=== PATIENT | male | born 1995 | race Caucasian/White ===

== ENCOUNTER 2019-02-06 01:42 | Emergency (ER) | payer OTHER ==
--- NOTE | 2019-02-06 02:06 | ED ---
Head Injury HPI - General Stated complaint: ETOH Time Seen by Provider: 02/06/19 01:49 Source: family Mode of arrival: EMS Limitations: altered mental status - History of Present Illness Initial comments: This patient is 23-year-old man brought by pulse to be evaluated after he had struck his head against car window. The patient had reportedly been drinking and then was upset. He struck himself with this to the face and then he struck his head against the one of a car. The patient then was becoming more intoxicated so EMS was phoned and brought him here. The patient appears very intoxicated and not able to give any history. MD Complaint: head injury -: minutes(s) Mechanism of Injury: other Location: frontal Loss of Consciousness: no Previous Trauma to this Area: No Place: outdoors Provoking factors: other (Alcohol) Other Injuries: none - Related Data Allergies/Adverse reactions: Allergies Allergy/AdvReac Type Severity Reaction Status Date / Time Fish Containing Products AdvReac Unknown Verified 02/06/19 02:08 [Fish] Review of Systems ROS Statement: Those systems with pertinent positive or pertinent negative responses have been documented in the HPI. ROS Other: All systems not noted in ROS Statement are negative. Limitations: ROS unobtainable due to patients medical condition General Exam General appearance: appears intoxicated, obtunded Head exam: Present: normocephalic, other (Contusion right frontal scalp/forehea d. No palpable deformity.) Eye exam: Present: normal appearance, PERRL, EOMI, nystagmus. Absent: scleral icterus, conjunctival injection ENT exam: Present: normal oropharynx Neck exam: Present: normal inspection, other (No palpable deformity or step- off.). Absent: tenderness Respiratory exam: Present: rhonchi. Absent: respiratory distress, wheezes, rales, stridor, chest wall tenderness, accessory muscle use, decreased breath sounds Cardiovascular Exam: Present: regular rate, normal rhythm, normal heart sounds. Absent: systolic murmur, diastolic murmur, rubs, gallop GI/Abdominal exam: Present: soft. Absent: distended, tenderness, guarding, rebound, rigid, mass Extremities exam: Present: normal inspection, normal capillary refill. Absent: pedal edema, calf tenderness Back exam: Present: normal inspection. Absent: CVA tenderness (R), CVA tenderness (L) Neurological exam: Present: altered, CN II-XII intact (Cranial nerve reflexes intact. Gag reflex is strong.), reflexes normal, other (Patient not able to cooperate with neurologic exam as he appears to be very intoxicated.) Skin exam: Present: warm, dry, intact, normal color. Absent: rash Course Vital Signs 02/06/19 02/06/19 02:02 03:55 Temperature 98.5 F Pulse Rate 82 64 Respiratory 17 18 Rate Blood Pressure 155/96 111/67 O2 Sat by Pulse 96 98 Oximetry Medical Decision Making - Lab Data Result diagrams: 02/06/19 01:58 02/06/19 01:58 Lab Results 02/06/19 02/06/19 Range/Units 01:58 01:58 WBC 11.2 H (3.8-10.6) k/uL RBC 4.87 (4.30-5.90) m/uL Hgb 15.4 (13.0-17.5) gm/dL Hct 42.8 (39.0-53.0) % MCV 87.9 (80.0-100.0) fL MCH 31.7 (25.0-35.0) pg MCHC 36.1 (31.0-37.0) g/dL RDW 12.3 (11.5-15.5) % Plt Count 204 (150-450) k/uL Neutrophils % 86 % Lymphocytes % 10 % Monocytes % 3 % Eosinophils % 0 % Basophils % 0 % Neutrophils # 9.6 H (1.3-7.7) k/uL Lymphocytes # 1.2 (1.0-4.8) k/uL Monocytes # 0.3 (0-1.0) k/uL Eosinophils # 0.0 (0-0.7) k/uL Basophils # 0.0 (0-0.2) k/uL Sodium 141 (137-145) mmol/L Potassium 4.1 (3.5-5.1) mmol/L Chloride 107 (98-107) mmol/L Carbon Dioxide 20 L (22-30) mmol/L Anion Gap 14 mmol/L BUN 12 (9-20) mg/dL Creatinine 0.87 (0.66-1.25) mg/dL Est GFR (CKD-EPI)AfAm >90 (>60 ml/min/1.73 sqM) Est GFR (CKD-EPI)NonAf >90 (>60 ml/min/1.73 sqM) Glucose 108 H (74-99) mg/dL Calcium 9.5 (8.4-10.2) mg/dL Serum Alcohol 155 mg/dL Disposition Clinical Impression: Alcoholic intoxication, Head injury Disposition: HOME SELF-CARE Condition: Good Instructions (If sedation given, give patient instructions): Alcohol Intoxication (ED), Head Injury (ED) Is patient prescribed a controlled substance at d/c from ED?: No Referrals: None,Stated [Primary Care Provider] - 1-2 days
--- NOTE | 2019-02-06 02:44 | CT ---
EXAMINATION TYPE: CT brain neha doyle con DATE OF EXAM: 02/06/2019 COMPARISON: None HISTORY: AMS CT DLP: 2003.60 mGycm Automated exposure control for dose reduction was used. TECHNIQUE: CT scan of the head and cervical spine are performed without contrast. FINDINGS: Ventricles have normal size. There is no mass effect nor midline shift. There is no sign of intracranial hemorrhage. The calvarium is intact. There is right frontal scalp hematoma. Skull bas e is intact. There is mild mucosal thickening right maxillary sinus. Orbital margins appear intact. Cervical vertebra have normal alignment. Disc spaces are normal. Posterior elements are intact. Facet joints appear normal. Skull base is intact. IMPRESSION: Negative CT scan of the brain. Right frontal moderate scalp hematoma. Negative CT scan of the cervical spine.
[2019-02-06 02:56] LABS: Basophils % (A) 0 %; Eosinophils % (A) 0 %; HCT 42.8 % (39.0-53.0); HGB 15.4 gm/dL (13.0-17.5); Lymphocytes # (A) 1.2 k/uL (1.0-4.8); Lymphocytes % (A) 10 %; MCH 31.7 pg (25.0-35.0); MCHC 36.1 g/dL (31.0-37.0); MCV 87.9 fL (80.0-100.0); Monocytes # (A) 0.3 k/uL (0-1.0); Monocytes % (A) 3 %; Neutrophils # (A) 9.6 k/uL (1.3-7.7); Neutrophils % (A) 86 %; Platelet Count 204 k/uL (150-450); RBC 4.87 m/uL (4.30-5.90); RDW 12.3 % (11.5-15.5); WBC 11.2 k/uL (3.8-10.6)
[2019-02-06 02:58] LABS: African American GFR (CKD) >90 (>60 ml/min/1.73 sqM); Anion Gap 14 mmol/L; Blood Urea Nitrogen 12 mg/dL (9-20); Calcium 9.5 mg/dL (8.4-10.2); Carbon Dioxide 20 mmol/L (22-30); Chloride 107 mmol/L (98-107); Glucose 108 mg/dL (74-99); Non-African American GFR(CKD) >90 (>60 ml/min/1.73 sqM); Potassium 4.1 mmol/L (3.5-5.1); Sodium 141 mmol/L (137-145)
[2019-02-06 03:16] LABS: Alcohol 155 mg/dL
[2019-02-06 03:56] VITALS: PULSE 64
[2019-02-06 05:31] VITALS: BP 133/84; RESP 17; TEMP 97.9
[2019-02-06] MEDS ORDERED: PROMETHAZINE INJ 25 MG/ML 1 ML VIAL IM STA (05:49)
== END 2019-02-06 05:58 | disposition home or self-care (01) ==
LOC: EC 01:42
DX: F10.129 Alcohol abuse with intoxication, unspecified (principal); S00.03XA Contusion of scalp, initial encounter; S00.83XA Contusion of other part of head, initial encounter; Z91.013 Allergy to seafood; Y90.6 Blood alcohol level of 120-199 mg/100 ml; X83.8XXA Intentional self-harm by other specified means, initial encounter; Y93.89 Activity, other specified; Y92.89 Other specified places as the place of occurrence of the external cause
CPT/HCPCS: 36415; 70450; 72125; 80048; 80320; 85025; 96372; 99284

== ENCOUNTER 2022-08-16 17:23 | Emergency (ER) | payer OTHER ==
[2022-08-16 17:55] VITALS: RESP 16
[2022-08-16] MEDS ORDERED: IBUPROFEN 800 MG TAB PO STA (18:16)
[2022-08-16 18:44] LABS: Basophils % (A) 1 %; Eosinophils # (A) 0.2 k/uL (0-0.7); Eosinophils % (A) 3 %; HCT 44.5 % (39.0-53.0); HGB 15.8 gm/dL (13.0-17.5); Lymphocytes # (A) 2.2 k/uL (1.0-4.8); Lymphocytes % (A) 23 %; MCH 31.8 pg (25.0-35.0); MCHC 35.5 g/dL (31.0-37.0); MCV 89.5 fL (80.0-100.0); Mean Platelet Volume 8.8; Monocytes # (A) 0.6 k/uL (0-1.0); Monocytes % (A) 7 %; Neutrophils # (A) 6.1 k/uL (1.3-7.7); Neutrophils % (A) 65 %; Platelet Count 277 k/uL (150-450); RBC 4.97 m/uL (4.30-5.90); RDW 12.5 % (11.5-15.5); WBC 9.2 k/uL (3.8-10.6)
[2022-08-16 19:06] LABS: ALT 51 U/L (4-49); AST 39 U/L (17-59); African American GFR (CKD) >90 (>60 ml/min/1.73 sqM); Albumin 4.6 g/dL (3.5-5.0); Alkaline Phosphatase 98 U/L (38-126); Anion Gap 11 mmol/L; Blood Urea Nitrogen 16 mg/dL (9-20); Calcium 9.7 mg/dL (8.4-10.2); Carbon Dioxide 28 mmol/L (22-30); Chloride 101 mmol/L (98-107); Glucose 90 mg/dL (74-99); Non-African American GFR(CKD) >90 (>60 ml/min/1.73 sqM); Potassium 4.1 mmol/L (3.5-5.1); Sodium 140 mmol/L (137-145); Total Bilirubin 0.4 mg/dL (0.2-1.3); Total Protein 7.9 g/dL (6.3-8.2); Uric Acid 6.3 mg/dL (3.5-8.5)
--- NOTE | 2022-08-16 19:19 | XR ---
EXAMINATION TYPE: XR foot complete LT DATE OF EXAM: 08/16/2022 6:57 PM INDICATION: Patient age:Male; 26 years old; Reason for study: L big toe; COMPARISON: None TECHNIQUE: The left foot was examined in the AP, oblique, and lateral projections. FINDINGS: Hallux valgus, mild soft tissue swelling around the medial aspect of the first digit metatarsophalang eal joint. No evidence of any acute osseous pathology. No evidence of soft tissue swelling. Joints a re preserved. IMPRESSION: 1. No evidence of acute fracture. 2. Hallux valgus with mild soft tissue swelling around the first digit metatarsal phalangeal joint.
--- NOTE | 2022-08-16 19:44 | ED ---
General Adult HPI - General Chief complaint: Extremity Injury, Lower Stated complaint: lt foot swelling Time Seen by Provider: 08/16/22 17:58 Source: patient, RN notes reviewed Mode of arrival: ambulatory Limitations: no limitations - History of Present Illness Initial comments: 26-year-old male with no significant past medical history presents to the emergency department with a chief complaint of left foot pain. Patient reports worsening pain and swelling to the left great toe. He reports that his symptoms started approximately 2 days ago. He denies any injury or trauma. He reports that it is warm to the touch. He has not taken anything for his symptoms. He denies any fevers, chills, numbness, tingling, weakness in the extremity. - Related Data Home Medications Medication Instructions Recorded Confirmed Aspirin EC [Ecotrin Low Dose] 81 mg PO DAILY 07/24/22 08/16/22 busPIRone HCL [Buspar] 7.5 mg PO BID@0900,1700 08/16/22 08/16/22 Previous Rx's Medication Instructions Recorded amLODIPine [Norvasc] 5 mg PO DAILY #30 tab 07/25/22 Indomethacin [Indocin] 50 mg PO TID 10 Days #30 capsule 08/16/22 Allergies Allergy/AdvReac Type Severity Reaction Status Date / Time Fish Containing Products Allergy Anaphylaxis Verified 08/16/22 18:18 [Fish] fish oil Allergy Anaphylaxis Verified 08/16/22 18:18 metoprolol [From Toprol XL] AdvReac tongue was Verified 08/16/22 18:18 numb/finger tingling Review of Systems ROS Statement: Those systems with pertinent positive or pertinent negative responses have been documented in the HPI. ROS Other: All systems not noted in ROS Statement are negative. Past Medical History Past Medical History: No Reported History History of Any Multi-Drug Resistant Organisms: None Reported Past Surgical History: No Surgical Hx Reported Past Psychological History: No Psychological Hx Reported Smoking Status: Current some day smoker Past Alcohol Use History: Occasional Past Drug Use History: Marijuana General Exam - General Exam Comments Initial Comments: General: Alert, in no acute distress Head: atraumatic normocephalic. Eyes PERRL, EOMI intact, mucous membranes moist Respiratory: Lungs clear to auscultation bilaterally Cardiovascular: Heart rate regular rate and rhythm Abdominal: Soft without guarding or rebound Extremities: Normal inspection with full range of motion and normal capillary refill, bilateral bunion left foot with podagra full range of motion is tender to palpation. 2+ DP/PT pulses Neuroogic: alert and oriented 3, CN II-XII intact, able to ambulate with steady gait Skin: warm dry and intact with normal color Limitations: no limitations Course Vital Signs 08/16/22 08/16/22 08/16/22 17:52 19:43 19:51 Temperature 97.9 F 98.6 F Pulse Rate 75 76 76 Respiratory 16 16 16 Rate Blood Pressure 153/92 149/96 149/96 O2 Sat by Pulse 100 99 99 Oximetry Medical Decision Making - Medical Decision Making Was pt. sent in by a medical professional or institution (, [facility], [employer], urgent care, hospital, or prison...) When possible be specific @ -[No] Did you speak to anyone other than the patient for history (EMS, parent, family, police, friend...)? What history was obtained from this source @ -[No] Did you review nursing and triage notes (agree or disagree)? Why? @ -[I reviewed and agree with nursing and triage notes] Were old charts reviewed (outside hosp., previous admission, EMS record, old EKG, old radiological studies, urgent care reports/EKG's, prison records)? Report findings @ -[No old charts were reviewed] Differential Diagnosis (chest pain, altered mental status, abdominal pain women, abdominal pain men, vaginal bleeding, weakness, fever, dyspnea, syncope, headache, dizziness, GI bleed, back pain, seizure, CVA, palpatations, mental health, musculoskeletal)? @ -[not applicable] EKG interpreted by me (3pts min.). @ -[As above] X-rays interpreted by me (1pt min.). @ -X-rays negative for any evidence of acute fracture dislocation or osteomyelitis CT interpreted by me (1pt min.). @ -[None done] U/S interpreted by me (1pt. min.). @ -[None done] What testing was considered but not performed or refused? (CT, X-rays, U/S, labs)? Why? @ -[None] What meds were considered but not given or refused? Why? @ -[None] Did you discuss the management of the patient with other professionals (professionals i.e. , PA, CUSTOMER SERVICE AD[employer]OC[employer], lab, RT, psych nurse, social service worker, electric car operator, teacher, mobile patrol officer, correctional casework specialist)? Give summary @ -[No] Was smoking cessation discussed for >3mins.? @ -[No] Was critical care preformed (if so, how long)? @ -[No] Were there social determinants of health that impacted care today? How? (Homelessness, low income, unemployed, alcoholism, drug addiction, transportation, low edu. Level, literacy, decrease access to med. care, [facility], rehab)? @ -[No] Was there de-escalation of care discussed even if they declined (Discuss DNR or withdrawal of care, Hospice)? DNR status @ -[No] What co-morbidities impacted this encounter? (DM, HTN, Smoking, COPD, CAD, Cancer, CVA, ARF, Chemo, Hep., AIDS, mental health diagnosis, sleep apnea, morbid obesity)? @ -[None] Was patient admitted / discharged? Hospital course, mention meds given and route, prescriptions, significant lab abnormalities, going to OR and other pertinent info. @ -Discharged. This is a 26-year-old male presents to the emergency department with left foot pain. Physical exam with podagra. Patient afebrile. Heart rate regular rate and rhythm. Patient had lab work and imaging performed in the emergency department which were essentially unremarkable. I discussed the results in detail with the patient verbalized understanding and all questions were addressed. Return precautions were discussed at length. Patient discharged in stable condition. He was given a prescription for indomethacin. Case discussed with Dr. Bean, [facility] who agrees with plan of care. Undiagnosed new problem with uncertain prognosis? @ -[No] Drug Therapy requiring intensive monitoring for toxicity (Heparin, Nitro, Insul in, Cardizem)? @ -[No] Were any procedures done? @ -[No] Diagnosis/symptom? @ -left foot pain - gout Acute, or Chronic, or Acute on Chronic? @ -Acute Uncomplicated (without systemic symptoms) or Complicated (systemic symptoms)? @ -Uncomplicated Side effects of treatment? @ -[No] Exacerbation, Progression, or Severe Exacerbation? @ -[No] Poses a threat to life or bodily function? How? (Chest pain, [place], MT, pneumonia, PE, COPD, DKA, ARF, appy, cholecystitis, CVA, Diverticulitis, Homicidal, Suicidal, threat to staff... and all critical care pts) @ -Low likelihood - Lab Data Result diagrams: 08/16/22 18:28 08/16/22 18:28 Lab Results 08/16/22 08/16/22 Range/Units 18:28 18:28 WBC 9.2 (3.8-10.6) k/uL RBC 4.97 (4.30-5.90) m/uL Hgb 15.8 (13.0-17.5) gm/dL Hct 44.5 (39.0-53.0) % MCV 89.5 (80.0-100.0) fL MCH 31.8 (25.0-35.0) pg MCHC 35.5 (31.0-37.0) g/dL RDW 12.5 (11.5-15.5) % Plt Count 277 (150-450) k/uL MPV 8.8 Neutrophils % 65 % Lymphocytes % 23 % Monocytes % 7 % Eosinophils % 3 % Basophils % 1 % Neutrophils # 6.1 (1.3-7.7) k/uL Lymphocytes # 2.2 (1.0-4.8) k/uL Monocytes # 0.6 (0-1.0) k/uL Eosinophils # 0.2 (0-0.7) k/uL Basophils # 0.0 (0-0.2) k/uL Sodium 140 (137-145) mmol/L Potassium 4.1 (3.5-5.1) mmol/L Chloride 101 (98-107) mmol/L Carbon Dioxide 28 (22-30) mmol/L Anion Gap 11 mmol/L BUN 16 (9-20) mg/dL Creatinine 0.81 (0.66-1.25) mg/dL Est GFR (CKD-EPI)AfAm >90 (>60 ml/min/1.73 sqM) Est GFR (CKD-EPI)NonAf >90 (>60 ml/min/1.73 sqM) Glucose 90 (74-99) mg/dL Uric Acid 6.3 (3.5-8.5) mg/dL Calcium 9.7 (8.4-10.2) mg/dL Total Bilirubin 0.4 (0.2-1.3) mg/dL AST 39 (17-59) U/L ALT 51 H (4-49) U/L Alkaline Phosphatase 98 (38-126) U/L Total Protein 7.9 (6.3-8.2) g/dL Albumin 4.6 (3.5-5.0) g/dL Disposition Clinical Impression: Gout Disposition: HOME SELF-CARE Condition: Stable Instructions (If sedation given, give patient instructions): Gout (ED) Prescriptions: Indomethacin [Indocin] 50 mg PO TID 10 Days #30 capsule Is patient prescribed a controlled substance at d/c from ED?: No Referrals: Emili Wahl MD [Primary Care Provider] - 1-2 days Time of Disposition: 19:44
[2022-08-16 19:46] VITALS: BP 149/96; PULSE 76
[2022-08-16 19:52] VITALS: TEMP 98.6
== END 2022-08-16 20:03 | disposition home or self-care (01) ==
LOC: EC 17:23
DX: M10.9 Gout, unspecified (principal); F12.90 Cannabis use, unspecified, uncomplicated; F17.200 Nicotine dependence, unspecified, uncomplicated; Z88.8 Allergy status to other drugs, medicaments and biological substances; Z91.013 Allergy to seafood
CPT/HCPCS: 36415; 80053; 84550; 85025; 99283